=== PATIENT | male | born 1965 | race Caucasian/White ===

== ENCOUNTER → 2017-12-13 | Outpatient (CLI) | payer OTHER | LOC: M WUC 12:01 | DX: M25.512 Pain in left shoulder (principal); M25.522 Pain in left elbow | CPT/HCPCS: 73030 ==

== ENCOUNTER → 2018-08-11 | Outpatient (CLI) | payer OTHER | LOC: M SLEEP 20:37 | DX: R40.0 Somnolence (principal); G47.33 Obstructive sleep apnea (adult) (pediatric) | CPT/HCPCS: 95810 ==

== ENCOUNTER → 2018-10-02 | Outpatient (REF) | payer OTHER ==
[~2018-10-02] MED LIST: NEXI40CA PO; ZOLO100T PO
[2018-10-02 12:06] LABS: BACTERIA, URINE AUTO NEGATIVE (NEGATIVE); RBC, URINE AUTO 0 /HPF (0-3); SQUAMOUS EPITHELIAL CELL UR AU 0 /HPF (0-6); WBC, URINE AUTO 1 /HPF (0-3)
== END ==
LOC: M LAB REF 11:48
PROVIDERS: ATTEND Nurse Practitioner Family
DX: R39.9 Unspecified symptoms and signs involving the genitourinary system (principal)

== ENCOUNTER 2018-10-22 05:05 | Emergency (ER) | payer OTHER ==
[~2018-10-22] VITALS: Ht 185.4 cm; Wt 100.0 kg
[2018-10-22 05:06] VITALS: BP 136/86
[2018-10-22] MEDS ORDERED: VALA1TAB2 PO (06:31)
--- NOTE | 2018-10-22 08:17 | REP ---
Clinical: Right-sided chest wall pain . Comparison: None . Technique: PA and lateral. Findings: The mediastinum and cardiac silhouette are normal. The lung eng are clear and without acute consolidation, effusion, or pneumothorax. The skeletal structures are intact and normal. Impression: 1. No acute cardiopulmonary process. Electronically Signed by Roberto Douglas MD 10/22/2018 08:08 A
== END 2018-10-22 06:45 | disposition home or self-care (01) ==
LOC: M ED 05:05
DX: B02.9 Zoster without complications (principal); K21.9 Gastro-esophageal reflux disease without esophagitis; F32.9 Major depressive disorder, single episode, unspecified; Z79.899 Other long term (current) drug therapy

== ENCOUNTER 2019-08-18 09:49 | Day surgery (SDC) | payer OTHER ==
[~2019-08-18] VITALS: Ht 190.5 cm; Wt 96.6 kg
[~2019-08-18 09:49] MED LIST changes: +CETI10CH PO; +DECONGESTANT PO; +EQ I1CAP PO; +LIDOCAINE 1% MDV 20ML VIAL SQ PRN; +LR 1,000 ML IV ONE; +OMEP20CA4 PO; +SERT50TA29 PO; +VALA1TAB2 PO
[2019-08-18] MEDS ORDERED: LIDOCAINE W/EPINEPHRINE 1% 20ML VIAL As Ordered ONE (11:30)
[2019-08-18] MEDS ORDERED: METHYLENE BLUE 0.5% (5MG/ML) 10 ML AMP (PROVAYBLUE)(Q9968 PER 1MG) As Ordered ONE (11:30)
[2019-08-18] MEDS ORDERED: EPINEPHrine 1MG/ML INJ 30ML MD-VIAL As Ordered ONE (11:30)
[2019-08-18] MEDS ORDERED: dexameTHASONE 4 MG/ML 1ML VIAL (J1100) As Ordered ONE (11:39)
[2019-08-18] MEDS ORDERED: LIDOCAINE 2% INJ 100 MG/5 ML SDV (FOR ANES.) As Ordered ONE (11:39)
[2019-08-18] MEDS ORDERED: MIDAZOLAM INJ 2 MG/2 ML VIAL (J2250) As Ordered ONE (11:39)
[2019-08-18] MEDS ORDERED: PROPOFOL 200 MG/20 ML VIAL As Ordered ONE (11:39)
[2019-08-18] MEDS ORDERED: fentaNYL 250 MCG/5 ML INJECTION (J3010) As Ordered ONE (11:39)
[2019-08-18] MEDS ORDERED: ROCURONIUM BROMIDE 50 MG/5 ML VIAL As Ordered ONE (11:39)
[2019-08-18] MEDS ORDERED: ONDANSETRON 4MG/2ML VIAL (J2405) As Ordered ONE ×2 (11:39→15:39)
[2019-08-18] MEDS ORDERED: ePHEDrine SULFATE 25 MG/5 ML(5MG/ML) SYRINGE As Ordered ONE (12:15)
[2019-08-18] MEDS ORDERED: PHENYLephrine HCL 500 MCG/5 ML (100MCG/ML) SYRINGE (J2370) As Ordered ONE (12:15)
[2019-08-18] MEDS ORDERED: SUGAMMADEX SODIUM 500 MG/5 ML VIAL (BRIDION) As Ordered ONE (13:00)
[2019-08-18] MEDS ORDERED: LR 1,000 ML IV SCH ×2 (14:00)
[2019-08-18] MEDS ORDERED: ACETAMINOPH W/CODEINE #3 TAB UD PO PRN (14:00)
[2019-08-18] MEDS ORDERED: ONDANSETRON 4MG/2ML VIAL (J2405) IV PRN (14:00)
[2019-08-18] MEDS: MORPHINE 10 MG/ML 1ML VIAL (J2270) IV PRN ×4 (14:15→14:30)
[2019-08-18] MEDS: PERCOCET 5MG/325MG TAB PO PRN ×2 (14:24→14:55)
[2019-08-18] MEDS: fentaNYL 100 MCG/2 ML INJECTION (J3010) IV PRN ×4 (14:55→15:10)
[2019-08-18 18:42] VITALS: BP 135/77
--- NOTE | 2019-08-19 18:48 | RO ---
DATE OF PROCEDURE: 10/18/2018 PREOPERATIVE DIAGNOSIS: Chronic sinusitis and oroantral fistula, left side. POSTOPERATIVE DIAGNOSIS: Chronic sinusitis and oroantral fistula, left side. OPERATIVE PROCEDURE: Left repair oroantral fistula with oral flap and left maxillary antrostomy, ethmoidectomy and left maxillary sinus lavage. FINDINGS: There was pus within the left maxillary sinus and thickened mucosa in the ethmoid area on the left side. There was granulation tissue on the wall of the maxillary sinus on the left side. SURGEON: Evens Denny MD ENERGY RATER: ANESTHESIA: General. DESCRIPTION OF PROCEDURE: Under general anesthesia with the patient intubated, the patient prepped and draped in the usual manner. I infiltrated inside the mouth with lidocaine and epinephrine and then used pledgets of adrenaline 1:1000 inside the nose. I started inside the nose. I went between the middle turbinate lateral nasal wall. I identified the uncinate process. I moved that anteriorly and then removed it. I then identified the natural sinus osteum. There was purulent fluid coming out of it. I suctioned the area. I then opened up the sinus superiorly, posteriorly, inferiorly in its medial wall. I then directed attention posteriorly and I opened the ethmoid air cells up to the nasal frontal area. Once this was done, I used pledgets of adrenaline 1:1000. I went inside the nose. I made an incision along the gingival dental area along the teeth and through the maxillary alveolus where the tooth had been extracted. I elevated periosteum on both sides. On the lateral portion of the alveolus posteriorly, there was soft bone and when I removed that it was adjacent to the root of the tooth distal. When I followed the soft bone I opened up into the sinus. That area was debrided. Once that area looked very good then I rotated lateral buccal flap overtop of the defect and then sutured it down with interrupted #3-0 chromic. Once this was done, everything looked good. Then inside the nose I made sure everything was clean and dry and then I put a Propel implant into the ostiomeatal complex area. The patient tolerated the procedure well. 50 mL estimated blood loss. Patient extubated and transferred to the recovery room in excellent condition.
[2019-08-19] MEDS ORDERED: TYLETAB14 PO (20:17)
[2019-08-19] MEDS ORDERED: AMOX500T2 PO (20:17)
== END 2019-08-18 19:15 | disposition home or self-care (01) ==
LOC: M SDC 09:49
PROVIDERS: ATTEND Otolaryngology
DX: J32.0 Chronic maxillary sinusitis (principal); K21.9 Gastro-esophageal reflux disease without esophagitis; G47.30 Sleep apnea, unspecified; F41.9 Anxiety disorder, unspecified; F32.9 Major depressive disorder, single episode, unspecified; Z79.899 Other long term (current) drug therapy
CPT/HCPCS: 30580; 31254; 31267; C2625; J1100; J2250; J2270; J2370; J2405; J3010; Q9968

== ENCOUNTER 2019-08-19 19:16 | Emergency (ER) | payer OTHER ==
[~2019-08-19] VITALS: Ht 185.4 cm; Wt 96.8 kg
[~2019-08-19 19:16] MED LIST changes: -LIDOCAINE 1% MDV 20ML VIAL SQ PRN; -LR 1,000 ML IV ONE
[2019-08-19] MEDS ORDERED: AMOX500T2 PO (20:17)
[2019-08-19] MEDS ORDERED: TYLETAB14 PO (20:17)
[2019-08-19 21:12] VITALS: BP 134/84
== END 2019-08-19 21:24 | disposition home or self-care (01) ==
LOC: M ED 19:16
DX: K91.89 Other postprocedural complications and disorders of digestive system (principal); F33.9 Major depressive disorder, recurrent, unspecified; F41.9 Anxiety disorder, unspecified; K21.9 Gastro-esophageal reflux disease without esophagitis; G47.33 Obstructive sleep apnea (adult) (pediatric); Z79.899 Other long term (current) drug therapy

== ENCOUNTER 2020-01-22 04:20 | Emergency (ER) | payer OTHER ==
[~2020-01-22] VITALS: Ht 185.4 cm; Wt 99.1 kg
[~2020-01-22 04:20] MED LIST changes: +AMOX500T2 PO; +OMEP1CAP73 PO; -OMEP20CA4 PO; +TYLETAB14 PO; -VALA1TAB2 PO; +VALA1TAB5 PO
[2020-01-22] MEDS ORDERED: [UNRECOGNIZED DRUG - CODE] PO (04:47)
[2020-01-22] MEDS ORDERED: FAMOTIDINE INJ 20MG/2ML VIAL (S0028 PER 1) IVP ONE (05:15)
[2020-01-22] MEDS ORDERED: diphenhydrAMINE 50MG/ML VIAL (J1200) IV ONE (05:15)
[2020-01-22] MEDS ORDERED: dexameTHASONE 20MG/5ML VIAL (J1100 PER 1MG) IV ONE (05:15)
[2020-01-22 05:23] LABS: BASO % 0.3 % (0.0-1.0); EOS # 0.1 10^3/uL (0.0-0.5); EOS % 0.8 % (0.0-3.0); HEMOGLOBIN 15.5 g/dl (13.5-17.5); LYMPH # 1.3 10^3/uL (1.5-5.0); LYMPH % 11.1 % (24.0-44.0); MEAN CORPUSCULAR HEMOGLOBIN 30.8 pg (27.0-33.0); MEAN CORPUSCULAR HGB CONC 34.4 g/dl (32.0-36.5); MEAN CORPUSCULAR VOLUME 89.3 fl (80.0-96.0); MONO # 0.6 10^3/uL (0.0-0.8); MONO % 4.7 % (0.0-5.0); NEUTROPHILS % 82.8 % (36.0-66.0); PLATELET COUNT, AUTOMATED 200 10^3/uL (150-450); RED BLOOD COUNT 5.04 10^6/uL (4.30-6.10)
[2020-01-22] MEDS ORDERED: ONDANSETRON 4MG/2ML VIAL IV ONE (05:30)
[2020-01-22 05:49] LABS: ALT/SGPT 48 U/L (12-78); BILIRUBIN,DIRECT 0.2 MG/DL (0.0-0.2); BILIRUBIN,TOTAL 0.8 MG/DL (0.2-1.0); BLOOD UREA NITROGEN 14 MG/DL (7-18); CALCIUM LEVEL 8.7 MG/DL (8.5-10.1); CARBON DIOXIDE LEVEL 28 MEQ/L (21-32); CHLORIDE LEVEL 104 MEQ/L (98-107); GLOMERULAR FILTRATION RATE > 60.0 (>56); GLUCOSE, FASTING 95 MG/DL (70-100); POTASSIUM SERUM 3.8 MEQ/L (3.5-5.1); SODIUM LEVEL 139 MEQ/L (136-145); TOTAL PROTEIN 7.3 GM/DL (6.4-8.2)
[2020-01-22 06:45] VITALS: BP 115/75
== END 2020-01-22 07:05 | disposition home or self-care (01) ==
LOC: M ED 04:20
DX: T78.3XXA Angioneurotic edema, initial encounter (principal)
CPT/HCPCS: 80048; 80076; 85025; 93041; 94760; 96374; 96375; 99284; J1100; J1200; J2405

== ENCOUNTER 2020-02-09 17:36 | Emergency (ER) | payer OTHER ==
[~2020-02-09] VITALS: Ht 185.4 cm; Wt 96.6 kg
[~2020-02-09 17:36] MED LIST changes: -EQ I1CAP PO; +IBUP200C89 PO; +[UNRECOGNIZED DRUG - CODE] PO
[2020-02-09] MEDS ORDERED: IBUPROFEN 600 MG TAB PO ONE (18:15)
--- NOTE | 2020-02-09 18:33 | REP ---
Left knee series: Five views. History: Tenderness after a fall. Findings: By views of the left knee demonstrate mild superior pole spurring on the patella. Bones, joints and soft tissues are otherwise unremarkable. No fracture or subluxation is seen. No evidence of joint effusion. Impression: Mild patellar spurring. No traumatic abnormality noted. Electronically Signed by Tushar Hernandez MD 02/09/2020 06:24 P
[2020-02-09 19:03] VITALS: BP 124/79
== END 2020-02-09 19:04 | disposition home or self-care (01) ==
LOC: M ED 17:36
DX: S80.812A Abrasion, left lower leg, initial encounter (principal); S70.312A Abrasion, left thigh, initial encounter; S50.02XA Contusion of left elbow, initial encounter; W11.XXXA Fall on and from ladder, initial encounter; Y92.410 Unspecified street and highway as the place of occurrence of the external cause; K21.9 Gastro-esophageal reflux disease without esophagitis; G47.33 Obstructive sleep apnea (adult) (pediatric); F99 Mental disorder, not otherwise specified; Z79.899 Other long term (current) drug therapy

== ENCOUNTER → 2022-05-22 | Outpatient (CLI) | payer OTHER | LOC: M WUC 11:51 | PROVIDERS: ATTEND Physician Assistant Medical | DX: M17.11 Unilateral primary osteoarthritis, right knee (principal); M25.511 Pain in right shoulder ==

== ENCOUNTER → 2023-03-09 | Outpatient (REF) | payer OTHER | LOC: M LAB REF 17:32 | PROVIDERS: ATTEND Physician Assistant Medical | DX: M79.10 Myalgia, unspecified site (principal) ==

== ENCOUNTER 2023-05-08 08:59 | Day surgery (SDC) | payer OTHER ==
[~2023-05-08] VITALS: Ht 185.4 cm; Wt 97.3 kg
[~2023-05-08 08:59] MED LIST changes: +NS 1,000 ML IV ONE
[2023-05-08] MEDS ORDERED: propofoL 200 MG/20 ML VIAL As Ordered ONE (10:31)
[2023-05-08] MEDS ORDERED: LIDOCAINE 2% 100MG/5ML SDV (FOR ANES.) As Ordered ONE (10:31)
[2023-05-08 11:46] VITALS: BP 124/74; TEMP 97; O2SAT 97
== END 2023-05-08 11:49 | disposition home or self-care (01) ==
LOC: M SDC 08:59
PROVIDERS: ATTEND Internal Medicine Gastroenterology
DX: Z12.11 Encounter for screening for malignant neoplasm of colon (principal); Z86.010 Personal history of colon polyps; K64.0 First degree hemorrhoids; K44.9 Diaphragmatic hernia without obstruction or gangrene; K22.89 Other specified disease of esophagus; K22.70 Barrett's esophagus without dysplasia; Z79.1 Long term (current) use of non-steroidal anti-inflammatories (NSAID); Z79.899 Other long term (current) drug therapy

== ENCOUNTER 2024-04-26 11:04 | Emergency (ER) | payer OTHER ==
[~2024-04-26] VITALS: Ht 185.4 cm; Wt 96.4 kg
[~2024-04-26 11:04] MED LIST changes: -NS 1,000 ML IV ONE
[2024-04-26 11:05] VITALS: BP 103/72; TEMP 99.2; O2SAT 97
[2024-04-26] MEDS ORDERED: BENZ200C70 PO (14:15)
[2024-04-26] MEDS ORDERED: AMOX875T2 PO (14:15)
== END 2024-04-26 14:20 | disposition home or self-care (01) ==
LOC: M ED 11:04
DX: J01.90 Acute sinusitis, unspecified (principal); K21.9 Gastro-esophageal reflux disease without esophagitis; G47.33 Obstructive sleep apnea (adult) (pediatric); F41.9 Anxiety disorder, unspecified; Z91.09 Other allergy status, other than to drugs and biological substances; Z79.2 Long term (current) use of antibiotics; Z79.1 Long term (current) use of non-steroidal anti-inflammatories (NSAID); Z79.899 Other long term (current) drug therapy

== ENCOUNTER → 2024-08-10 | Outpatient (CLI) | payer OTHER ==
[~2024-08-10] MED LIST changes: +AMOX875T2 PO; +BENZ200C70 PO
== END ==
LOC: M RAD 15:19
PROVIDERS: ATTEND Nurse Practitioner Family
DX: M16.11 Unilateral primary osteoarthritis, right hip (principal)